=== PATIENT | female | born 1980 | race Caucasian/White ===

== ENCOUNTER 2019-07-29 13:41 | Emergency (ER) | payer MEDICAID ==
[~2019-07-29] VITALS: Ht 157.5 cm; Wt 40.0 kg
[2019-07-29 14:15] VITALS: BP 140/89
== END 2019-07-29 16:51 | disposition left against medical advice (07) ==
LOC: ER 13:41
DX: Z53.21 Procedure and treatment not carried out due to patient leaving prior to being seen by health care provider (principal)

== ENCOUNTER 2019-07-29 19:29 | Emergency (ER) | payer MEDICAID ==
[~2019-07-29] VITALS: Ht 157.5 cm; Wt 51.0 kg
[2019-07-29 19:38] VITALS: BP 161/114
== END 2019-07-29 21:00 | disposition left against medical advice (07) ==
LOC: ER 19:29
DX: Z53.21 Procedure and treatment not carried out due to patient leaving prior to being seen by health care provider (principal)

== ENCOUNTER 2019-07-29 23:32 | Emergency (ER) | payer MEDICAID ==
[~2019-07-29] VITALS: Ht 157.5 cm; Wt 46.0 kg
== END 2019-07-30 00:10 | disposition left against medical advice (07) ==
LOC: ER 23:32
DX: Z53.21 Procedure and treatment not carried out due to patient leaving prior to being seen by health care provider (principal)

== ENCOUNTER 2019-07-30 13:22 | Emergency (ER) | payer MEDICAID ==
[~2019-07-30] VITALS: Ht 157.5 cm; Wt 41.0 kg
[2019-07-30] MEDS ORDERED: LORAZEPAM 0.5MG TABLET PO ONE (16:15)
== END 2019-07-30 16:34 | disposition home or self-care (01) ==
LOC: ER 13:22
DX: R42 Dizziness and giddiness (principal); R53.1 Weakness; F17.200 Nicotine dependence, unspecified, uncomplicated; F14.10 Cocaine abuse, uncomplicated; F15.10 Other stimulant abuse, uncomplicated; F10.20 Alcohol dependence, uncomplicated; Y90.9 Presence of alcohol in blood, level not specified
CPT/HCPCS: 99282